=== PATIENT | female | born 1990 | race Caucasian/White ===

== ENCOUNTER 2016-08-11 16:00 | Outpatient (CLI) | payer OTHER ==
[~2016-08-11] VITALS: Ht 176.5 cm; Wt 72.0 kg
--- NOTE | 2016-08-11 16:49 | Progress Note ---
Progress Note Date of Service Aug 11, 2016. Progress Note Outpatient note 26 F P0000 at 35 week here to r/o SROM. No active fluid leaking. Amnisure is negative. FHT Cat 1. Will d/c home. Follow up if any changes.
[2016-08-11 17:12] VITALS: Ht 176.5 cm; Wt 72.0 kg
[2016-08-11] MEDS ORDERED: SYNTHROID (17:14)
== END 2016-08-11 16:50 | disposition home or self-care (01) ==
LOC: C.LD 16:00 → C.OPB 16:00
PROVIDERS: ATTEND Obstetrics & Gynecology
DX: Z34.03 Encounter for supervision of normal first pregnancy, third trimester (principal)

== ENCOUNTER 2016-09-15 07:15 | Inpatient (IN) | payer OTHER ==
[~2016-09-15] VITALS: Ht 176.5 cm; Wt 76.0 kg
[~2016-09-15 07:15] MED LIST: SYNTHROID
[2016-09-22 13:25] VITALS: Ht 176.5 cm; Wt 76.0 kg
[2016-09-22] MEDS ORDERED: LEVO25TA5 PO (13:27)
[2016-09-22 14:44] LABS: HEMATOCRIT 38.3 % (37-47); MEAN CELL VOLUME 92.3 fL (80-100); MEAN CORPUSCULAR HGB CONC 34.7 g/dl (32-36); MEAN PLATELET VOLUME 10.7 fL (7.4-10.4); PLATELET COUNT 218 K/uL (130-400); RED BLOOD COUNT 4.15 M/uL (4.2-5.4); WHITE BLOOD COUNT 17.23 K/uL (4.8-10.8)
[2016-09-22] MEDS: LACTATED RINGER'S 1000ML 1,000 ML IV SCH ×2 (17:19→19:22)
[2016-09-22] MEDS ORDERED: EpHEDrine SULFATE INJ 50 MG/ML AMP ONE (17:40)
[2016-09-22] MEDS ORDERED: BUPIVACAINE 0.25% 30 ML VIAL ONE (17:40)
[2016-09-22] MEDS ORDERED: FENTANYL 2MCG/ML ROPIV 1.25MG/ML 100ML BAG EPI ONE (17:41)
[2016-09-22] MEDS ORDERED: FENTANYL CITRATE INJ 50 MCG/1 ML 2 ML VIAL ONE (17:41)
[2016-09-22] MEDS ORDERED: LACTATED RINGER'S 1000ML 500 ML IV PRN (18:13)
[2016-09-22] MEDS ORDERED: EpHEDrine SULFATE INJ 50 MG/ML AMP IV PRN (18:15)
[2016-09-22] MEDS ORDERED: DiphenhydrAMINE HCL 50 MG/ML VIAL IV PRN (18:15)
[2016-09-22] MEDS ORDERED: ONDANSETRON INJ 2 MG/ML 2 ML VIAL IV PRN (18:15)
[2016-09-22] MEDS ORDERED: NALOXONE HCL INJ 0.4 MG/1 ML VIAL/CARP IV PRN (18:15)
[2016-09-22] MEDS ORDERED: FENTANYL 2MCG/ML ROPIV 1.25MG/ML 100ML BAG EPI PRN (18:15)
[2016-09-22] MEDS ORDERED: NALBUPHINE HCL INJ 10 MG/ML AMP IV PRN (18:15)
[2016-09-22] MEDS ORDERED: OXYTOCIN 30 UNITS/500ML NSS IV ONE (22:16)
[2016-09-23] MEDS ORDERED: ACETAMINOPHEN 325 MG TAB PO PRN (02:45)
[2016-09-23] MEDS ORDERED: OXYTOCIN 30 UNITS/500ML NSS IV PRN (02:45)
[2016-09-23] MEDS ORDERED: OXYCODONE/ACETAMINOPHEN 5-325 TAB PO PRN (02:45)
[2016-09-23] MEDS ORDERED: LANOLIN OINT EXT PRN ×2 (02:45)
[2016-09-23] MEDS ORDERED: ACETAMINOPHEN/CODEINE 300/30MG TAB PO PRN ×2 (02:45)
[2016-09-23] MEDS ORDERED: BENZOCAINE 20% AER SPR 82.5 GM CAN EXT PRN (02:45)
[2016-09-23] MEDS ORDERED: SUPERCREAM 0.870 % 15GM JAR EXT PRN (02:45)
[2016-09-23] MEDS ORDERED: HYDROCORTISONE ACETATE 25 MG SUPP PR PRN (02:45)
[2016-09-23 04:55] VITALS: BP 125/69; PULSE 93; TEMP 36.7
[2016-09-23] MEDS: IBUPROFEN 600 MG TAB PO PRN ×3 (05:05→20:11)
--- NOTE | 2016-09-23 05:34 | Anesthesia Procedure Note ---
Anesthesia Epidural Removal Nt Date & Time Sep 23, 2016 at 05:34 Vital Signs Pain Intensity: 3.0 Vital Signs Past 12 Hours Date Time Temp Pulse Resp B/P (MAP) Pulse Ox O2 Delivery O2 Flow Rate FiO2 09/23/16 04:55 36.7 93 18 125/69 (87) Notes Mental Status: alert / awake / arousable, participated in evaluation Nausea / Vomiting: adequately controlled Pain: adequately controlled Airway Patency, RR, SpO2: stable & adequate BP & HR: stable & adequate Hydration State: stable & adequate Neuraxial Anesthesia: was administered Anesthetic Complications: no major complications apparent, pt satisfied with anesthetic care Epidural: removed without complications, with tip intact
--- NOTE | 2016-09-23 06:47 | OPERATIVE REPORT ---
DATE OF OPERATION: 09/23/2016 DELIVERY NOTE The patient delivered a live in occiput anterior presentation with loose nuchal cord. was delivered and again was found to have terminal meconium. Infant was placed on mother's abdomen. Cord clamp was performed after 1 minute. Infant's weight is pending. Apgars 7 and 9. Placenta was spontaneously delivered as a 3-vessel cord. Placenta appears grossly normal and sent to pathology for pathologic analysis. Inspection of the perineum showed a midline vaginal laceration second degree. She also has bilateral periurethral tears that were repaired with 2-0 and 3-0 Vicryl respectively. Rectal exam post repair showed good sphincter tone. There are no sutures palpated in the rectum. All sponges, retractors and instruments and needles are removed from the vagina and accounted for x2. There is good hemostasis. Baby and mother are doing well in recovery ESTIMATED BLOOD LOSS: 400 mL. I attest to the content of the Intraoperative Record and any orders documented therein. Any exception s are noted below.
[2016-09-23 07:47] VITALS: BP 125/67; PULSE 57; TEMP 36.8; O2SAT 97
[2016-09-23] MEDS: FERROUS SULFATE 325 MG TAB PO SCH (08:05)
[2016-09-23] MEDS: PRENATAL VITAMIN TAB PO SCH (08:05)
[2016-09-23 12:13] VITALS: BP 115/70; PULSE 71; TEMP 36.4; O2SAT 96
[2016-09-23 12:15] VITALS: O2SAT 96
[2016-09-23 16:55] VITALS: BP 118/74; PULSE 70; TEMP 36.8; O2SAT 98
[2016-09-23 20:20] VITALS: BP 124/69; PULSE 86; TEMP 36.5
[2016-09-23] MEDS ORDERED: NURSING VERBAL MED ORDER ONE (21:30)
[2016-09-23] MEDS: DOCUSATE SODIUM 100 MG CAP PO SCH (22:05)
[2016-09-24] VITALS: BP 104/62; PULSE 64; TEMP 36.6
[2016-09-24 07:35] VITALS: BP 116/69; PULSE 71; TEMP 36.9; O2SAT 98
[2016-09-24] MEDS: DOCUSATE SODIUM 100 MG CAP PO SCH ×2 (08:21→19:43)
[2016-09-24] MEDS: FERROUS SULFATE 325 MG TAB PO SCH (08:21)
[2016-09-24] MEDS: PRENATAL VITAMIN TAB PO SCH (08:21)
--- NOTE | 2016-09-24 09:01 | OB/GYN Progress Note ---
BANK TELLER Progress Note Date of Service: Sep 24, 2016. Patient is seen and examined. She feels well, no complaints. Unable to void yesterday and irene was placed Ambulating without dizziness Tolerating regular diet with out N&V Bleeding is minimal No fever/ chills/ CP/ SOB/ N&V/ Leg pain Breast feeding without problems Date Time Temp Pulse Resp B/P (MAP) Pulse Ox O2 Delivery O2 Flow Rate FiO2 09/24/16 00:00 Room Air 09/24/16 00:00 36.6 64 16 104/62 (76) 09/23/16 20:20 36.5 86 18 124/69 (87) Room Air 09/23/16 16:55 36.8 70 16 118/74 (89) 98 Room Air 09/23/16 16:55 98 Room Air 09/23/16 12:15 96 Room Air 09/23/16 12:13 36.4 71 16 115/70 (85) 96 Room Air Test 08/11/16 17:07 09/22/16 14:33 09/24/16 06:11 Amniotic Fluid Protein NEG White Blood Count 17.23 H Red Blood Count 4.15 L Hemoglobin 13.3 11.7 L Hematocrit 38.3 34.0 L Mean Corpuscular Volume 92.3 Mean Corpuscular Hemoglobin 32.0 Mean Corpuscular Hemoglobin Concent 34.7 RDW Standard Deviation 43.3 RDW Coefficient of Variation 12.7 Platelet Count 218 Mean Platelet Volume 10.7 H PE: General: Alert, orientedx3, NAD Abd: soft, NT, fundus firm, below Umbilicus Perineum intact, Lochia rubra minimal Irene in draining Ext; NT, no edema AP: 26 yo s/p , ppd# 1 VSS Afebrile doing well Continue routine care D/C irene CBC in am All questions were answered D/C home in am
[2016-09-24] MEDS ORDERED: LEVOTHYROXINE 25 MCG TAB PO ONE (09:09)
[2016-09-24 15:40] VITALS: BP 119/72; PULSE 69; TEMP 36.7
[2016-09-24] MEDS: IBUPROFEN 600 MG TAB PO PRN ×2 (15:53→23:21)
[2016-09-24] MEDS ORDERED: BISACODYL 5 MG TABEC PO SCH (20:00)
[2016-09-24 23:10] VITALS: BP 121/73; PULSE 64; TEMP 36.8; O2SAT 97
[2016-09-25] MEDS ORDERED: NURSING VERBAL MED ORDER ONE (06:30)
[2016-09-25 06:41] LABS: BASO % 0.2 %; BASO ABS # 0.03 K/uL (0-0.2); COMPLETE YES; EOS % 1.6 %; HEMATOCRIT 34.5 % (37-47); IG% 1.5 %; LYMPH % 17.1 %; LYMPH ABS # 2.55 K/uL (1.2-3.4); MEAN CORPUSCULAR HGB CONC 33.6 g/dl (32-36); MEAN PLATELET VOLUME 10.5 fL (7.4-10.4); MONO % 7.2 %; NEUT % 72.4 %; PLATELET COUNT 204 K/uL (130-400); RED BLOOD COUNT 3.63 M/uL (4.2-5.4); WHITE BLOOD COUNT 14.87 K/uL (4.8-10.8)
[2016-09-25] MEDS ORDERED: BISACODYL 10 MG SUPP PR PRN (07:00)
[2016-09-25 07:05] VITALS: BP 113/70; PULSE 54; TEMP 36.8; O2SAT 99
--- NOTE | 2016-09-25 07:21 | Discharge Instructions ---
Discharge Instructions Date of Service Sep 25, 2016. Admission Reason for Admission: Induction Discharge Discharge Diagnosis / Problem: Discharge Goals Goal(s): Routine recovery after delivery Activity Recommendations Activity Limitations: as noted below Lifting Limitations: gradually increase as tolerated Exercise/Sports Limitations: until after follow-up appointment May Resume Sexual Activity: after follow-up appointment Shower/Bathe: no limitations Driving or Machine Use: ACTIVITY RECOMMENDATIONS: * Gradual return to full activity over the next 2-3 weeks. * No lifting - nothing heavier than baby over the next 2-3 weeks. * Do not engage in vigorous exercise, sexual activity or sports until cleared by your physician. * Do not drive or operate any motorized equipment until cleared by your physician. * You may shower/bathe daily. BREAST CARE: If you are not breast feeding: * Wear a supportive bra 24 hours a day for one to two weeks. * Avoid stimulating your breasts and nipples as much as possible during the first few weeks after delivery. * When taking a shower, have the warm water hit your back, not breasts. * When your breasts feel full, apply ice packs. Usually three to four times a day helps ease the discomfort. * Take a mild pain medication (Tylenol/Motrin) when you are uncomfortable. If breast feeding: * Use breast milk to lubricate nipples. Lansinoh cream may be used for sore nipples. You do not need to remove cream prior to breast feeding. If using a different brand of cream, check the label for directions regarding removal of cream prior to nursing. * Wear a supportive bra. * If having problems with breasts or breast feeding, call a rn lactation consultant or your health care provider. EPISIOTOMY CARE: After delivery, if you have an episiotomy (stitches), the following steps will ease discomfort and aid healing. * For the first 24 hours after delivery, place ice packs next to your episiotomy to help reduce swelling. * After the first 24 hour-period, sitz baths, either portable or in the tub, are suggested. A shower with a shower arm sprayed over the episiotomy may be comforting. * K[place]ly care should be done after each voiding and bowel movement. Squirt warm water from a plastic bottle over the perineum (region of the body between the anus and urinary opening) and pat dry. * Use Dermoplast to ease discomfort. Shake container. [place] directly over the episiotomy. * Place a Tucks on a clean sanitary pad next to your episiotomy. OVER THE COUNTER MEDICATION: * For discomfort or pain, you may use Acetaminophen (Tylenol), Ibuprofen (Advil ), or Naproxen (Aleve) following the package directions. * For constipation you may use Colace following the package directions. SPECIAL CARE INSTRUCTIONS: When you are discharged from the hospital, it is important for you to follow the instructions listed below: * During the first week at home, you should be able to care for yourself and your baby. In addition, the usual light household activities are encouraged. * Limit your activities to the way you feel. Do not try to clean the house or move furniture. Be sensible. * If you actively engage in sports and have done so up until the time of your delivery, you may resume these activities as soon as you feel able. This may take up to one month or even longer. Use good judgment. * Continue to take your vitamins for at least six weeks after the of your baby. * Your diet need not be limited unless you were on a special diet before your delivery. Breast-feeding mothers need around 2500 calories per day and at least 64-80 ounces of fluid per day (8 to 10 glasses). * You should eat foods from the four major food groups. Crash diets or fad diets are to be avoided. Eating lean meats, fresh fruits and vegetables, low-fat dairy products, high fiber foods and a regular exercise program, will help you get back to your pre- weight without putting your health at risk. * Constipation is sometimes a problem after delivery. Take a mild laxative as needed. If breast feeding, Milk of Magnesia is acceptable to use. You may use a suppository or Fleets enema if no episiotomy. * A daily shower or tub bath is suggested. Be sure to thoroughly and gently dry the perineum. * A bloody vaginal discharge will usually continue until around four weeks post . A small amount of bleeding may continue for as long as six weeks. Vaginal discharge changes from the bright red bleeding after delivery to pink then brownish and finally yellowish-pink before becoming white and disappearing. * Bleeding may increase with activity. Your first period may come in 4-8 weeks. If you are breast feeding, your period may be delayed even longer. * [place] (sex) can begin whenever both you and your partner feel comfortable and do not have any form of genital infection. It is recommended that you wait until after your return appointment and discuss with your physician. If you have questions, please talk to your health care practitioner. A condom should be used to prevent infection and . * Foreplay, gentle intercourse and lubrication is very important the first several times to prevent pain. A water-based lubricant such as K-Y jelly or Astroglide may be used. * Tampons may be used six weeks after delivery. * Douching should be avoided for 6 weeks after delivery. * If you have RH negative blood and your baby is RH positive, you will receive RHOGAM by injection prior to discharge. The nurse will give you a card to keep with you that has the date and place that you received RHOGAM after delivery. * During your care, you had a Rubella screen done to check for the presence of rubella antibodies in your blood. If your test was negative, you will receive a Rubella vaccine prior to discharge. This vaccine may cause a fever, soreness at the injection site and flu-like symptoms. If these symptoms persist, notify your health care practitioner. is not advised for three months after a Rubella vaccine. There is a higher chance of having a baby with defects if conceived within three months of getting the vaccine. * If you were discharged 24 hours from delivery or before 48 hours: Visiting nurses will come to your home 48 hours after discharge to assess you and your baby. The visiting nurse will meet with you while you are in the hospital to arrange a time and get directions to your home. * Verbalizes understanding of car seat law as reviewed with patient nursing. * Car Seat hand-out given and reviewed with patient by nursing. * Shaken baby information reviewed with patient by nursing. Call you doctor if: * Heavy bleeding (saturating several pads an hour) or passing clots the size of your fist. * A fever >101 degrees F (38.3 degrees C) on two occasions four hours apart and/or chills. * Unusual pain in the pelvic or vaginal areas. * "Baby Blues" lasting longer than two weeks. If you have any questions or concerns, call your health care practitioner at . FOLLOW-UP VISIT: * Please call the office at to schedule a 6 week examination. It is important you keep this appointment. * It is important for you to make arrangements for either yearly or twice yearly check-ups thereafter. . Current Hospital Diet Patient's current hospital diet: Regular OB Diet Discharge Diet Recommended Diet: Regular Diet Pending Studies Studies pending at discharge: no Medical Emergencies . Who to Call and When: Medical Emergencies: If at any time you feel your situation is an emergency, please call 911 immediately. . Non-Emergent Contact Non-Emergency issues call your: Surgeon Call Non-Emergent contact if: temperature is above 100.5, your pain is not controlled, your pain is worsening, wound has increased drainage, wound has increased redness . . "Provider Documentation" section prepared by Joe Dean. . VTE Core Measure Inpt VTE Proph given/why not?: Treatment not indicated
[2016-09-25] MEDS ORDERED: LEVOTHYROXINE 25 MCG TAB PO SCH (07:30)
--- NOTE | 2016-09-25 07:32 | OB/GYN Progress Note ---
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 Patient is seen and examined. She feels well, no complaints. Ambulating without dizziness Voiding without difficulty Tolerating regular diet with out N&V Bleeding is minimal No fever/ chills/ CP/ SOB/ N&V/ Leg pain Breast feeding without problems Date Time Temp Pulse Resp B/P (MAP) Pulse Ox O2 Delivery O2 Flow Rate FiO2 09/24/16 23:10 36.8 64 16 121/73 (89) 97 Room Air 09/24/16 23:10 Room Air 09/24/16 15:40 Room Air 09/24/16 15:40 36.7 69 18 119/72 (88) Room Air 09/24/16 07:35 Room Air 09/24/16 07:35 36.9 71 16 116/69 (85) 98 Room Air Test 08/11/16 17:07 09/22/16 14:33 09/24/16 06:11 09/25/16 06:05 Amniotic Fluid Protein NEG White Blood Count 17.23 H 14.87 H Red Blood Count 4.15 L 3.63 L Hemoglobin 13.3 11.7 L 11.6 L Hematocrit 38.3 34.0 L 34.5 L Mean Corpuscular Volume 92.3 95.0 Mean Corpuscular Hemoglobin 32.0 32.0 Mean Corpuscular Hemoglobin Concent 34.7 33.6 RDW Standard Deviation 43.3 44.9 RDW Coefficient of Variation 12.7 13.0 Platelet Count 218 204 Mean Platelet Volume 10.7 H 10.5 H Neutrophils (%) (Auto) 72.4 Lymphocytes (%) (Auto) 17.1 Monocytes (%) (Auto) 7.2 Eosinophils (%) (Auto) 1.6 Basophils (%) (Auto) 0.2 Neutrophils # (Auto) 10.76 H Lymphocytes # (Auto) 2.55 Monocytes # (Auto) 1.07 H Eosinophils # (Auto) 0.24 Basophils # (Auto) 0.03 Immature Granulocyte % (Auto) 1.5 Immature Granulocyte # (Auto) 0.22 H PE: General: Alert, orientedx3, NAD Abd: soft, NT, fundus firm, below Umbilicus Perineum intact, Lochia rubra minimal Ext; NT, no edema AP: 26 yo s/p , ppd# 2 VSS Afebrile doing well Continue routine care All questions were answered Instructions were given when to call D/C home , f/u in office
[2016-09-25] MEDS: PRENATAL VITAMIN TAB PO SCH (08:49)
[2016-09-25] MEDS: DOCUSATE SODIUM 100 MG CAP PO SCH (08:49)
[2016-09-25] MEDS: FERROUS SULFATE 325 MG TAB PO SCH (08:49)
[2016-09-25 14:25] VITALS: BP_DIAS 70; PULSE 54; TEMP 36.8
== END 2016-09-25 14:25 | disposition home or self-care (01) | DRG 775 ==
LOC: INTOOBSV 09-22 10:42 → C.LD 09-22 10:42 → OBSVTOIN 09-22 14:21 → C.OBG 09-23 05:07
PROVIDERS: ADMIT Obstetrics & Gynecology; ATTEND Obstetrics & Gynecology
PROC: 10E0XZZ Delivery of Products of Conception, External Approach (ICD-10-PCS; principal; 2016-09-23)
PROC: 0UQMXZZ Repair Vulva, External Approach (ICD-10-PCS; principal; 2016-09-23)
PROC: 0KQM0ZZ Repair Perineum Muscle, Open Approach (ICD-10-PCS; principal; 2016-09-23)
DX: O48.0 Post-term pregnancy (principal); Z37.0 Single live birth; O77.0 Labor and delivery complicated by meconium in amniotic fluid; O70.1 Second degree perineal laceration during delivery; O71.82 Other specified trauma to perineum and vulva; O69.81X0 Labor and delivery complicated by cord around neck, without compression, not applicable or unspecified; Z3A.41 41 weeks gestation of pregnancy; O99.284 Endocrine, nutritional and metabolic diseases complicating childbirth; E07.9 Disorder of thyroid, unspecified; Z79.899 Other long term (current) drug therapy

== ENCOUNTER 2020-03-14 18:57 | Inpatient (IN) ==
--- OUTSIDE RECORDS SUMMARY | 2020-03-14 19:01 | External Medical Summary | Continuity of Care Document ---
:1990 Author Name Po Lopez Address Unavailable Unavailable , Care Team Providers Name Role Phone Po Lopez Unavailable [email or web address] [email or web address], [email or web address] Unavailable Unavailable Problems Active medical history not documented Allergies and Adverse Reactions Allergy history not documented Medications Medications not documented Procedures Procedures not documented Immunizations Immunizations not documented Plan of Treatment Planned Observations Planned Goals not documented Results No Known Results Results not documented
[2020-03-14] MEDS ORDERED: LACTATED RINGER'S 1,000 ML IV PRN (19:16)
[2020-03-14] MEDS ORDERED: PENICILLIN G POTASSIUM 3 MU in DEXTROSE 5% 100 ML IV PRN (19:16)
[2020-03-14] MEDS ORDERED: OXYTOCIN 30 UNITS/500 ML BAG IV PRN ×2 (19:16→21:59)
[2020-03-14] MEDS ORDERED: PENICILLIN G POTASSIUM 6 MU in DEXTROSE 5% 250 ML IV ONE (19:45)
[2020-03-14] MEDS ORDERED: fentaNYL citrate 100 MCG/2 ML VIAL ONE (19:47)
[2020-03-14] MEDS ORDERED: ePHEDrine sulfate 50 MG/ML AMP ONE (19:47)
[2020-03-14] MEDS ORDERED: SODIUM CHLORIDE 0.9% INJ 10 ML VIAL ONE (19:47)
[2020-03-14] MEDS ORDERED: BUPIVACAINE 0.25% 30 ML VIAL ONE (19:47)
[2020-03-14] MEDS ORDERED: fentaNYL 2MCG/ML ROPIVACAINE 1.25MG/ML 100 ML BAG EPI ONE (19:48)
--- NOTE | 2020-03-14 19:53 | Obstetrical Progress Note ---
Date of Service March 14, 2020 Subjective Admit Note 30 F P1001 at 40.4 weeks admitted with SROM clear fluid with onset of contractions. GBS is negative. Covid is negative. Cervix is 5/90/-1/vertex. Plans for epidural.. Anticipate normal delivery. Results & Data ([facility]) Vital Signs (Past 12 Hours) Vital Signs Temp Pulse Resp BP 03/14/20 19:06 78 117/69 03/14/20 19:05 36.9 C 20
[2020-03-14 19:57] LABS: Hematocrit (blood only) 35.8 % (37-47); Hemoglobin 12.3 g/dL (12.0-16.0); Mean Corpuscular Hemoglobin 31.9 pg (25-34); Mean Corpuscular Volume 92.7 fL (80-100); Mean Platelet Volume 11.2 fL (7.4-10.4); Platelet Count 250 K/uL (130-400); RDW Coefficient of Variation 12.8 % (11.5-14.5); RDW Standard Deviation 42.9 fL (36.4-46.3); Red Blood Count 3.86 M/uL (4.2-5.4); White Blood Count 16.38 K/uL (4.8-10.8)
[2020-03-14 20:05] LABS: Mean Corpuscular Hgb Conc 34.4 g/dL (32-36)
[2020-03-14] MEDS ORDERED: PROMETHAZINE HCL 6.25 MG in SODIUM CHLORIDE 0.9% 50 ML IV PRN (20:34)
[2020-03-14] MEDS ORDERED: ONDANSETRON INJ 2 MG/ML 2 ML VIAL IV PRN (20:34)
[2020-03-14] MEDS ORDERED: NALOXONE HCL 1 MG in SODIUM CHLORIDE 0.9% 1000ML 1,000 ML IV PRN (20:34)
[2020-03-14] MEDS ORDERED: diphenhydrAMINE 50 MG/ML VIAL IV PRN (20:34)
[2020-03-14] MEDS ORDERED: ePHEDrine sulfate 50 MG/ML AMP IV PRN (20:34)
[2020-03-14] MEDS ORDERED: fentaNYL 2MCG/ML ROPIVACAINE 1.25MG/ML 100 ML BAG EPI PRN (20:34)
[2020-03-14] MEDS ORDERED: NALOXONE HCL 0.4 MG/1 ML VIAL/CARP IV PRN (20:34)
--- NOTE | 2020-03-14 20:34 | Anesthesiology Consultation ---
Date of Service March 14, 2020 Assessment & Plan (1) Encounter for pre-operative examination: Chart Review Chart Review: Patient NOT seen in Pre Admission Testing and Acceptable Risk for Labor Epidural Consults Requested none ASA ASA2 Proposed Anesthesia Anesthesia Type: Labor Epidural Risk / Benefits Reviewed With: PT / POA / Parent / Guardian, Accepts Plan and Informed Consent Obtained History Height/Weight Height: 5 ft 9.5 in Weight: 77.564 kg Allergies Allergy/AdvReac Type Severity Reaction Status Date / Time No Known Allergies Allergy Unverified 09/22/16 21:17 Medications Home Medications Medication Instructions Recorded Confirmed Last Taken vit-ferrous sulfat-FA 1 tab PO DAILY 03/14/20 03/14/20 03/14/20 14:00 [] Active Medications Generic Name Dose Route Start Last Admin Trade Name Freq PRN Reason Stop Dose Admin Lactated Ringer's 1,000 mls @ 125 mls/hr 03/14/20 19:16 03/14/20 19:45 Lr IV 03/16/20 19:15 0 mls/hr .Q8H PRN Infusion L&D Protocol Protocol Penicillin G Potassium 6 mu/ 262 mls @ 262 mls/hr 03/14/20 19:45 03/14/20 19:45 Dextrose IV 03/14/20 20:44 262 mls/hr 1945 ONE Administration NPO Date Last Intake of Fluids: 03/14/20 Time Last Intake of Fluids: 16:00 Date Last Intake of Solids: 03/14/20 Time Last Intake of Solids: 13:00 Exercise / Class Metabolic Activity II 4-5 Yardwork/Stairs/Walk up hill Past Anesthesia History No Hx of Anesthesia Complications and No Family Hx of Anesthesia Complications History of PONV No Hx of PONV and No Hx of Motion Sickness Social History Smoking Status: Never smoker Hx Alcohol Use: No Hx Substance Use: No Physical Exam Vital Signs Last Vital Signs Temp 36.9 C 03/14/20 19:05 Pulse 97 H 03/14/20 20:31 Resp 20 03/14/20 19:05 BP 106/67 03/14/20 20:31 Pulse Ox 100 03/14/20 20:30 ENMT Mouth: no dentition abnormality Thyromental Distance: > or= 3.5 Finger Breadths Mallampati Class: II Neck normal visual inspection Respiratory normal respiratory effort Auscultation: lungs clear to auscultation bilaterally Cardiovascular Rate/Rhythm: regular rate and regular rhythm Psychiatric Orientation: alert Testing Laboratory Results 03/14/20 19:36
--- NOTE | 2020-03-14 21:41 | Delivery Summary ---
Vaginal Delivery Summary Date of Service March 14, 2020 Vaginal Delivery Summary Delivery note live male over intact perineum TRACI with delayed cord clamping. 8/9 weight pending. Cord blood obtained followed by spontaneous delivery of intact placenta. No tears. EBL 100 ml. Final sponge and instrument count are correct. Mom and baby stable.
[2020-03-14] MEDS ORDERED: ACETAMINOPHEN 325 MG TAB PO PRN (21:59)
[2020-03-14] MEDS ORDERED: HYDROCORTISONE ACETATE 25 MG SUPP PR PRN (21:59)
[2020-03-14] MEDS ORDERED: bisacodyL 10 MG SUPP PR PRN (21:59)
[2020-03-14] MEDS ORDERED: SUPERCREAM 0.870% 15 GM JAR EXT PRN (21:59)
[2020-03-14] MEDS ORDERED: DIPHTHERIA/TETANUS/PERTUSSIS 0.5 ML SYR/VIAL IM ONE (21:59)
[2020-03-14] MEDS ORDERED: BENZOCAINE 20% AER SPR 82.5 GM CAN EXT PRN (21:59)
[2020-03-15] MEDS: IBUPROFEN 600 MG TAB PO PRN ×5 (00:35→22:15)
[2020-03-15 06:32] LABS: Hematocrit (blood only) 30.5 % (37-47); Hemoglobin 10.5 g/dL (12.0-16.0); Mean Corpuscular Hemoglobin 32.3 pg (25-34); Mean Corpuscular Hgb Conc 34.4 g/dL (32-36); Mean Corpuscular Volume 93.8 fL (80-100); Mean Platelet Volume 11.1 fL (7.4-10.4); Platelet Count 213 K/uL (130-400); RDW Coefficient of Variation 12.7 % (11.5-14.5); RDW Standard Deviation 43.5 fL (36.4-46.3); Red Blood Count 3.25 M/uL (4.2-5.4)
--- NOTE | 2020-03-15 07:20 | Anesthesia Procedure Note ---
Date of Service March 15, 2020 Anesthesia Post Epidural Note Vital Signs Vital Signs: Temp Pulse Resp BP Pulse Ox 36.3 C L 58 L 16 118/67 98 03/15/20 04:40 03/15/20 04:40 03/15/20 04:40 03/15/20 04:40 03/15/20 04:40 Pain Intensity Bilateral Abdomen: Pain Intensity: 2 Notes Mental Status: alert / awake / arousable Nausea / Vomiting: adequately controlled Pain: adequately controlled Airway Patency, RR, SpO2: stable & adequate BP & HR: stable & adequate Hydration State: stable & adequate Neuraxial Anesthesia: was administered and sensory block is resolving Anesthetic Complications: no major complications apparent and Pt Satisfied with anesthetic care Epidural: Removed without complications and With tip intact
[2020-03-15] MEDS: FERROUS SULFATE 325 MG TAB PO SCH (07:49)
[2020-03-15] MEDS: DOCUSATE SODIUM 100 MG CAP PO SCH ×2 (07:49→22:15)
[2020-03-15] MEDS: PRENATAL VITAMIN 1 TAB PO SCH (07:49)
[2020-03-15] MEDS ORDERED: NON-FORMULARY MEDICATION (Prenatal Vit-Ferrous Sulfat-Fa 27 mg iron- 0.8 mg Tablet) PO SCH (09:00)
--- NOTE | 2020-03-15 14:57 | Obstetrical Progress Note ---
Date of Service March 15, 2020 Assessment & Plan Admission and Anticipated Discharge Date Admission Date: March 14, 2020 Physical Exam Physical Exam: PPD#1 doing well tolerating diet ambulating well Constitutional: WD/WN, vitals as above comfortable abdomen soft and non- tender fundus firm abdomen soft no edema Results & Data ([facility]) Vital Signs (Past 12 Hours) Vital Signs Temp Pulse Resp BP Pulse Ox 03/15/20 12:34 36.5 C 90 16 119/68 03/15/20 07:32 36.8 C 66 18 111/60 98 03/15/20 04:40 36.3 C L 58 L 16 118/67 98 Laboratory Results all Laboratory Results - last 72 hr 03/14/20 03/15/20 19:36 06:21 WBC 16.38 H 18.70 H RBC 3.86 L 3.25 L Hgb 12.3 10.5 L Hct 35.8 L 30.5 L MCV 92.7 93.8 MCH 31.9 32.3 MCHC 34.4 34.4 RDW Std Deviation 42.9 43.5 RDW Coeff of Heidi 12.8 12.7 Plt Count 250 213 MPV 11.2 H 11.1 H
[2020-03-15] MEDS ORDERED: bisacodyL 5 MG TABEC PO SCH (20:00)
[2020-03-16] MEDS: IBUPROFEN 600 MG TAB PO PRN ×3 (02:08→10:33)
[2020-03-16 06:56] LABS: Basophils # (auto) 0.03 K/uL (0-0.2); Basophils % (auto) 0.2 %; Eosinophils # (auto) 0.22 K/uL (0-0.5); Eosinophils % (auto) 1.3 %; Hemoglobin 10.9 g/dL (12.0-16.0); Immature Granulocytes # (auto) 0.25 K/uL (0.00-0.02); Immature Granulocytes % (auto) 1.5 %; Lymphocytes # (auto) 3.46 K/uL (1.2-3.4); Lymphocytes % (auto) 20.7 %; Mean Corpuscular Hgb Conc 34.1 g/dL (32-36); Mean Corpuscular Volume 93.8 fL (80-100); Mean Platelet Volume 10.9 fL (7.4-10.4); Monocytes # (auto) 1.19 K/uL (0.11-0.59); Monocytes % (auto) 7.1 %; Neutrophils # (auto) 11.58 K/uL (1.4-6.5); Neutrophils % (auto) 69.2 %; Platelet Count 220 K/uL (130-400); RDW Coefficient of Variation 12.9 % (11.5-14.5); RDW Standard Deviation 43.6 fL (36.4-46.3); Red Blood Count 3.41 M/uL (4.2-5.4); White Blood Count 16.73 K/uL (4.8-10.8)
[2020-03-16] MEDS: PRENATAL VITAMIN 1 TAB PO SCH (08:01)
[2020-03-16] MEDS: DOCUSATE SODIUM 100 MG CAP PO SCH (08:01)
[2020-03-16] MEDS: FERROUS SULFATE 325 MG TAB PO SCH (08:01)
--- NOTE | 2020-03-16 08:17 | Obstetrical Progress Note ---
Date of Service March 16, 2020 Assessment & Plan Admission and Anticipated Discharge Date Admission Date: March 14, 2020 Subjective Patient is seen and examined. She feels well, no complaints. Ambulating without dizziness Voiding without difficulty Tolerating regular diet with out N&V Bleeding is moderate No fever/ chills/ CP/ SOB/ N&V/ Leg pain Breast feeding without problems Vital Signs Temp Pulse Resp BP Pulse Ox 03/16/20 01:10 36.5 C 70 16 111/63 98 03/15/20 19:20 36.3 C L 80 18 123/71 99 03/15/20 15:30 36.4 C L 68 16 131/71 97 03/15/20 12:34 36.5 C 90 16 119/68 Lab Results 03/14/20 03/15/20 03/16/20 Range/Units 19:36 06:21 06:31 WBC 16.38 H 18.70 H 16.73 H (4.8-10.8) K/uL RBC 3.86 L 3.25 L 3.41 L (4.2-5.4) M/uL Hgb 12.3 10.5 L 10.9 L (12.0-16.0) g/dL Hct 35.8 L 30.5 L 32.0 L (37-47) % MCV 92.7 93.8 93.8 (80-100) fL MCH 31.9 32.3 32.0 (25-34) pg MCHC 34.4 34.4 34.1 (32-36) g/dL RDW Std Deviation 42.9 43.5 43.6 (36.4-46.3) fL RDW Coeff of Heidi 12.8 12.7 12.9 (11.5-14.5) % Plt Count 250 213 220 (130-400) K/uL MPV 11.2 H 11.1 H 10.9 H (7.4-10.4) fL Immature Gran % (Auto) 1.5 % Neut % (Auto) 69.2 % Lymph % (Auto) 20.7 % [place] % (Auto) 7.1 % Eos % (Auto) 1.3 % Baso % (Auto) 0.2 % Neut # (Auto) 11.58 H (1.4-6.5) K/uL Lymph # (Auto) 3.46 H (1.2-3.4) K/uL Dixon # (Auto) 1.19 H (0.11-0.59) K/uL Eos # (Auto) 0.22 (0-0.5) K/uL Baso # (Auto) 0.03 (0-0.2) K/uL Immature Gran # (Auto) 0.25 H (0.00-0.02) K/uL PE: General: Alert, orientedx3, NAD Abd: soft, NT, fundus firm, below Umbilicus Perineum intact, Lochia rubra minimal Ext; NT, no edema AP: 30 yo s/p , ppd# 2 VSS Afebrile doing well Continue routine care All questions were answered Discussed when to call D/C home , f/u in office Results & Data ([facility]) Vital Signs (Past 12 Hours) Vital Signs Temp Pulse Resp BP Pulse Ox 03/16/20 01:10 36.5 C 70 16 111/63 98
[2020-03-16] MEDS ORDERED: METHYLERGONOVINE MALEATE 0.2 MG TAB PO STA (08:29)
--- NOTE | 2020-03-16 08:34 | History & Physical Report ---
Date of Service March 16, 2020 Assessment & Plan Admission and Anticipated Discharge Date Admission Date: March 14, 2020 History of Present Illness Chief Complaint: Induction of labor Primary Care Provider: NO PCP Patient is a 30 yo at 39 wks who is was scheduled for IOL at term for GDMA2, on insulin. Patient has no complaints. She denies contractions, leakage of fluid, vaginal bleeding, fever chills, chest pain shortness of breath, headaches change in her vision, nausea or vomiting. She reports good movements. She has been on 32 units of long-acting insulin at night, started at 16 weeks at 10 units and increase throughout this . Her fingerstick was 74 mg/dL this morning. GBS is negative. Coronavirus testing is negative. Allergies Allergy/AdvReac Type Severity Reaction Status Date / Time No Known Allergies Allergy Unverified 09/22/16 21:17 Home Medications Medication Instructions Recorded Confirmed Type vit-ferrous sulfat-FA 1 tab PO DAILY 03/14/20 03/14/20 History ferrous sulfate 325 mg PO DAILY@08 #40 tab 03/16/20 Rx ibuprofen 600 mg PO Q6 #40 tab 03/16/20 Rx methylergonovine [Methergine] 0.2 mg PO Q6 1 Days #4 tab 03/16/20 Rx Patient History Social History Smoking Status: Never smoker Hx Alcohol Use: No Hx Substance Use: No Preferred Language: [place] Beliefs That Will Affect Care: None marital status: Current Living Situation: Family Other Information That Helps Us Care for You: No Feels Safe at Home: Yes Safety Concerns: Feels Safe At This Time Assistive Devices: None OB History Full-term spontaneous vaginal delivery in 2016, no complications. Baby weighed 8 pounds and 6 ounces. 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 Review of Systems All systems reviewed & are unremarkable except as noted in HPI & below Physical Exam Constitutional: WD/WN, vitals as above well developed and well nourished Gastrointestinal (Abdomen): normal bowel sounds, soft, nontender, no hepatosplenomegaly (Gravid, Sigifredo 8 lb) Results & Data ([facility]) Vital Signs (Past 12 Hours) Vital Signs Temp Pulse Resp BP Pulse Ox 03/16/20 01:10 36.5 C 70 16 111/63 98 Code Status & VTE Plan VTE Prophylaxis Plan VTE Prophylaxis will be ordered: No
[2020-03-16] MEDS: METHYLERGONOVINE MALEATE 0.2 MG TAB PO SCH ×2 (08:57→12:08)
== END 2020-03-16 14:12 | disposition home or self-care (01) | DRG 807 ==
LOC: OPB 18:57 → 4S1 18:59 → 4S2 03-15 01:00